=== PATIENT | male | born 1950 | race Caucasian/White ===

== ENCOUNTER 2018-04-14 13:59 | Observation (INO) | payer MEDICARE, MEDICAID ==
[2018-04-14 14:27] LABS: BASO % 0.6 % (0.0-2.0); EOS # 0.1 K/uL (0.0-0.7); EOS % 0.8 % (0.0-4.0); HEMOGLOBIN 13.5 g/dL (12.0-18.0); LYMPH # 1.6 K/uL (1.0-4.3); LYMPH % 20.9 % (20.0-40.0); MEAN CELL VOLUME 88.6 fL (80.0-94.0); MEAN CORPUSCULAR HEMOGLOBIN 29.1 pg (27.0-31.0); MEAN CORPUSCULAR HGB CONC 32.8 g/dL (33.0-37.0); MEAN PLATELET VOLUME 10.8 fL (7.2-11.7); MONO # 0.4 K/uL (0.0-0.8); MONO % 4.8 % (0.0-10.0); NEUT # 5.6 K/uL (1.8-7.0); NEUT % 72.9 % (50.0-75.0); RBC 4.66 Mil/uL (4.40-5.90); RED CELL DISTRIBUTION WIDTH 13.1 % (11.5-14.5); WHITE BLOOD COUNT 7.6 K/uL (4.8-10.8)
[2018-04-14 14:31] LABS: INR 1.2; PROTHROMBIN TIME 13.6 SECONDS (9.7-12.2)
[2018-04-14 14:35] LABS: ALBUMIN 4.5 g/dL (3.5-5.0); BLOOD UREA NITROGEN 21 mg/dL (9-20); GFR NON-AFRICAN AMERICAN > 60
[2018-04-14 14:36] LABS: ALB/GLOB RATIO 1.5 (1.0-2.1); ALT/SGPT 16 U/L (21-72); AST/SGOT 21 U/L (17-59)
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
[2018-04-14 15:53] LABS: SQUAMOUS EPITHIAL 2 /hpf (0-5); URINE BILIRUBIN NEGATIVE (NEGATIVE); URINE BLOOD 1+ (NEGATIVE); URINE CLARITY Hazy (Clear); URINE COLOR Yellow (YELLOW); URINE GLUCOSE (UA) NORMAL (Normal); URINE LEUKOCYTE ESTERASE NEG Leu/uL (Negative); URINE PROTEIN NEGATIVE (NEGATIVE)
[2018-04-14] MEDS: Sodium Chloride 0.9% 1,000 ML IV SCH (16:00)
--- NOTE | 2018-04-14 18:41 | RAD ---
Date of service: 04/14/2018 PROCEDURE: CHEST RADIOGRAPH, 1 VIEW HISTORY: chest pain COMPARISON: None available. FINDINGS: LUNGS: Clear. PLEURA: No pneumothorax or pleural fluid seen. CARDIOVASCULAR: No aortic atherosclerotic calcification present. No radiographic findings to suggest acute or significant cardiovascular disease. OSSEOUS STRUCTURES: No significant abnormalities. Old healed posterior lateral and presumed posttraumatic rib fractures on the right. VISUALIZED UPPER ABDOMEN: Normal. OTHER FINDINGS: None. IMPRESSION: No active disease.
[2018-04-14 18:51] LABS: CK-MB 1.86 ng/mL (0.0-3.38)
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
[2018-04-14 22:38] LABS: CK-MB 2.23 ng/mL (0.0-3.38)
[2018-04-15 02:14] LABS: CK-MB 2.18 ng/mL (0.0-3.38)
[2018-04-15 03:03] VITALS: RESP 20
[2018-04-15] MEDS: Sodium Chloride 0.9% 1,000 ML IV SCH ×4 (05:14→22:00)
[2018-04-15 07:35] LABS: HEMOGLOBIN 12.2 g/dL (12.0-18.0); MEAN CELL VOLUME 87.7 fL (80.0-94.0); MEAN CORPUSCULAR HGB CONC 33.1 g/dL (33.0-37.0); MEAN PLATELET VOLUME 11.1 fL (7.2-11.7); RBC 4.21 Mil/uL (4.40-5.90); RED CELL DISTRIBUTION WIDTH 13.3 % (11.5-14.5); WHITE BLOOD COUNT 7.6 K/uL (4.8-10.8)
[2018-04-15 07:48] LABS: ALB/GLOB RATIO 1.5 (1.0-2.1); ALBUMIN 3.6 g/dL (3.5-5.0); ALT/SGPT 17 U/L (21-72); AST/SGOT 23 U/L (17-59); BLOOD UREA NITROGEN 19 mg/dL (9-20); CALCIUM 8.2 mg/dl (8.6-10.4); GFR NON-AFRICAN AMERICAN > 60; HDL CHOLESTEROL 44 mg/dL (30-70)
[2018-04-15 07:58] LABS: LDL CHOLESTEROL 83 mg/dL (0-129)
--- NOTE | 2018-04-15 10:07 | US ---
Date of service: 04/15/2018 PROCEDURE: Ultrasound of the Kidneys HISTORY: painless hematuria, smoker COMPARISON: None available. TECHNIQUE: Grayscale imaging was performed. FINDINGS: RIGHT KIDNEY: Measures: 10.3 cm. Normal in size, contour and echogenicity. No stone, solid mass lesion or hydronephrosis visualized. LEFT KIDNEY: Measures: 10.2 cm. Normal in size, contour and echogenicity. No stone, solid mass lesion or hydronephrosis visualized. OTHER FINDINGS: None. IMPRESSION: Unremarkable renal sonogram.
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
--- NOTE | 2018-04-15 12:18 | CARD ---
APPROVED REPORT Date of service: 04/14/2018 EKG Measurement Heart [id number] <Conclusion> Normal sinus rhythm Left axis deviation Nonspecific ST abnormality Abnormal ECG
--- NOTE | 2018-04-15 12:18 | CARD ---
APPROVED REPORT Date of service: 04/14/2018 EKG Measurement Heart [id number] <Conclusion> Sinus bradycardia Left axis deviation Nonspecific ST and T wave abnormality Abnormal ECG
--- NOTE | 2018-04-15 13:54 | CARD ---
APPROVED REPORT Date of service: 04/15/2018 EXAM: Two-dimensional and M-mode echocardiogram with Doppler and color Doppler. INDICATION CHECK EF, RECURRENT TIA, WEAKNESS, STROKE RISK FACTORS Hypertension 2D DIMENSIONS IVSd1.1 (0.7-1.1cm)LVDd4.1 (3.9-5.9cm) PWd1.0 (0.7-1.1cm)LA [id number] (18-58mL) LVDs2.6 (2.5-4.0cm)FS (%) 36.7 % LVEF (%)66.9 (>50%)LVEF (Valdez's)59.48 % M-Mode DIMENSIONS Left Atrium (MM)2.38 (2.5-4.0cm)IVSd0.85 (0.7-1.1cm) Aortic Root3.53 (2.2-3.7cm)LVDd5.33 (4.0-5.6cm) Aortic Cusp Exc.2.18 (1.5-2.0cm)PWd0.91 (0.7-1.1cm) FS (%) 40 %LVDs3.20 (2.0-3.8cm) LVEF (%)63 (>50%) Mitral Valve MV E Vbuflamg42.9cm/sMV A Uvotkhdt78.3cm/sE/A ratio0.8 TDI Lateral E' Peak V5.58cm/sMedial E' Peak V5.84cm/sE/Lateral E'11.8 E/Medial E'11.3 Tricuspid Valve TR Peak [id number]/sTR Peak Gr.[id number] <Conclusion> nornal size la,lv & ra rv. normal lv wall motion,thickness,systolic & diastolic funciton with lvef of 55-60%. normal aortic,mitral,tv & pv. mild tr & pi with normal pulmonary systolic pressures of 25 mm of hg. no peric ardial effusion. normal size ivc. mildly dilated aortic root,4.0 cm.
--- NOTE | 2018-04-15 15:20 | CP.PCM.CON ---
History of Present Illness - History of Present Illness History of Present Illness: Neurology Consultation Note: Consult requested by Dr. Lopez Mr. Patel is a 67-year-old man with a past medical history of HTN, dementia, previous ischemic strokes in 2015 with residual weakness and dysarthria, who was at his PMDs office and noted to have bilateral lower extremity weakness. He was taken to his PMD by his cousin after he fell down and hit his head at home. He was sent to the ED for evaluation by the PMD. Initial CT scan showed chronic infarcts in the right MCA region and bilateral subcortical basal ganglia. He complained of pain in his back and his legs. No weakness in upper extremities was reported. When I saw the patient, he said the pain comes and goes and he was not currently having any in his back or legs. However, he appeared deconditioned and said he felt weak in his legs. Review of Systems - Review of Systems All systems: reviewed and no additional remarkable complaints except Past Patient History - Infectious Disease Hx of Infectious Diseases: None - Past Social History Smoking Status: Never Smoked - CARDIAC Hx Hypertension: Yes - PULMONARY Hx Asthma: Yes - NEUROLOGICAL HX Cerebrovascular Accident: Yes - MUSCULOSKELETAL/RHEUMATOLOGICAL Hx Arthritis: Yes - PSYCHIATRIC Hx Substance Use: No - SURGICAL HISTORY Other/Comment: unknown - ANESTHESIA Hx Anesthesia: No Meds Allergies/Adverse Reactions: Allergies Allergy/AdvReac Type Severity Reaction Status Date / Time No Known Allergies Allergy Verified 04/14/18 14:15 - Medications Medications: Current Medications Aspirin (Aspirin Supp) 300 mg HI DAILY [facility] Clopidogrel Bisulfate (Plavix) 75 mg PO DAILY [facility] Donepezil HCl (Aricept) 10 mg PO DAILY [facility] Famotidine (Pepcid) 20 mg PO DAILY [facility] Heparin Sodium (Porcine) (Heparin) 5,000 units SC Q8 [facility] Last Admin: 04/15/18 05:16 Dose: 5,000 units Sodium Chloride (Sodium Chloride 0.9%) 1,000 mls @ 100 mls/hr IV .Q10H [facility] Last Admin: 04/15/18 05:15 Dose: Not Given Nicotine (Nicoderm Cq) 1 patch TD DAILY [facility] Last Admin: 04/15/18 11:10 Dose: 1 patch Pantoprazole Sodium (Protonix Inj) 40 mg IVP DAILY [facility] Pneumococcal Polyvalent Vaccine (Pneumovax 23 Vaccine) 0.5 ml IM .ONCE ONE Stop: 04/16/18 12:01 Rosuvastatin Calcium (Crestor) 5 mg PO HS [facility] Last Admin: 04/14/18 21:35 Dose: Not Given Physical Exam - Constitutional Appears: Confused, Cachectic, Chronically Ill - Head Exam Head Exam: ATRAUMATIC, NORMAL INSPECTION, NORMOCEPHALIC - Eye Exam Additional comments: Right eye was esotropic - ENT Exam ENT Exam: Mucous Membranes Moist, Normal Exam - Neck Exam Neck exam: Positive for: Normal Inspection - Respiratory Exam Respiratory Exam: Clear to Auscultation Bilateral, NORMAL BREATHING PATTERN - Cardiovascular Exam Cardiovascular Exam: Bradycardia, +S1, +S2 - Neurological Exam Neurological exam: Abnormal Gait, CN II-XII Intact, Oriented x3 Additional comments: Significant dysarthria noted. Reflexes were brisk on the left side as compared to the right. He had generalized weakness, but was able to hold up both legs for longer than 10 seconds. 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 Results - Vital Signs Recent Vital Signs: Last Vital Signs Temp 97.6 F 04/15/18 07:25 Pulse 57 L 04/15/18 09:50 Resp 20 04/15/18 07:25 BP 138/78 04/15/18 07:25 Pulse Ox 98 04/15/18 07:25 - Labs Result Diagrams: 04/15/18 07:23 04/15/18 07:23 Labs: Laboratory Results - last 24 hr 04/14/18 04/14/18 04/14/18 15:40 18:24 21:59 WBC RBC Hgb Hct MCV MCH MCHC RDW Plt Count MPV Sodium Potassium Chloride Carbon Dioxide Anion Gap BUN Creatinine Est GFR ( Amer) Est GFR (Non-Af Amer) Random Glucose Hemoglobin A1c Calcium Phosphorus Magnesium Total Bilirubin AST ALT Alkaline Phosphatase Total Creatine Kinase 186 H 259 H CK-MB (Mass) 1.86 2.23 Troponin I < 0.0120 C-Reactive Protein NT-Pro-B Natriuret Pep 140 Total Protein Albumin Globulin Albumin/Globulin Ratio Triglycerides Cholesterol LDL Cholesterol Direct HDL Cholesterol Vitamin B12 TSH 3rd Generation Urine Color Yellow Urine Clarity Hazy Urine pH 5.0 Ur Specific [place] 1.025 Urine Protein Negative Urine Glucose (UA) Normal Urine Ketones Negative Urine Blood 1+ H Urine Nitrate Negative Urine Bilirubin Negative Urine Urobilinogen 2.0 Ur Leukocyte Esterase Neg Urine WBC (Auto) 4 Urine RBC (Auto) 4 H Ur Squamous Epith Cells 2 04/15/18 04/15/18 04/15/18 01:34 07:23 07:23 WBC 7.6 RBC 4.21 L Hgb 12.2 Hct 36.9 MCV 87.7 MCH 29.0 MCHC 33.1 RDW 13.3 Plt Count 176 MPV 11.1 Sodium 136 Potassium 3.5 L Chloride 105 Carbon Dioxide 24 Anion Gap 9 L BUN 19 Creatinine 0.6 L Est GFR ( Amer) > 60 Est GFR (Non-Af Amer) > 60 Random Glucose 85 Hemoglobin A1c Calcium 8.2 L Phosphorus 3.0 Magnesium 2.1 Total Bilirubin 0.6 AST 23 ALT 17 L Alkaline Phosphatase 85 Total Creatine Kinase 248 H CK-MB (Mass) 2.18 Troponin I < 0.0120 C-Reactive Protein NT-Pro-B Natriuret Pep Total Protein 6.1 L Albumin 3.6 Globulin 2.5 Albumin/Globulin Ratio 1.5 Triglycerides 56 Cholesterol 131 LDL Cholesterol Direct 83 HDL Cholesterol 44 Vitamin B12 348 TSH 3rd Generation 2.26 Urine Color Urine Clarity Urine pH Ur Specific [place] Urine Protein Urine Glucose (UA) Urine Ketones Urine Blood Urine Nitrate Urine Bilirubin Urine Urobilinogen Ur Leukocyte Esterase Urine WBC (Auto) Urine RBC (Auto) Ur Squamous Epith Cells 04/15/18 04/15/18 07:23 14:16 WBC RBC Hgb Hct MCV MCH MCHC RDW Plt Count MPV Sodium Potassium Chloride Carbon Dioxide Anion Gap BUN Creatinine Est GFR ( Amer) Est GFR (Non-Af Amer) Random Glucose Hemoglobin A1c 5.5 Calcium Phosphorus Magnesium Total Bilirubin AST ALT Alkaline Phosphatase Total Creatine Kinase CK-MB (Mass) Troponin I C-Reactive Protein 8.80 NT-Pro-B Natriuret Pep Total Protein Albumin Globulin Albumin/Globulin Ratio Triglycerides Cholesterol LDL Cholesterol Direct HDL Cholesterol Vitamin B12 TSH 3rd Generation Urine Color Urine Clarity Urine pH Ur Specific [place] Urine Protein Urine Glucose (UA) Urine Ketones Urine Blood Urine Nitrate Urine Bilirubin Urine Urobilinogen Ur Leukocyte Esterase Urine WBC (Auto) Urine RBC (Auto) Ur Squamous Epith Cells Assessment & Plan (1) TIA (transient ischemic attack) Assessment and Plan: The patient is currently at or near his baseline with no focal deficits. I recommend the followin. Telemetry 2. MRI brain without contrast and MRA head/neck without contrast 3. Echocardiogram 4. Check Lipids, HbA1c, b12, folate, TSH, vitamin D levels 5. Fluids with NS at 100 mL/hr 6. PT/OT eval and treatment 7. Continue aspirin 81 mg daily 8. Continue crestor 5 mg daily 9. Normalize BP 10. Case management consult Thank you for this consultation. Status: Acute
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
[2018-04-15] MEDS ORDERED: Dextrose 50% SYRINGE Inj (50 ml) IV PRN (19:00)
[2018-04-15] MEDS ORDERED: Glucagon Recombinant 1 mg Inj IM PRN (19:00)
[2018-04-15] MEDS ORDERED: hydrOXYzine HCl 25 mg/ml Inj IM STA (22:09)
[2018-04-16] MEDS: Sodium Chloride 0.9% 1,000 ML IV SCH ×2 (03:00→14:00)
[2018-04-16 07:28] LABS: ALB/GLOB RATIO 1.6 (1.0-2.1); ALBUMIN 4.2 g/dL (3.5-5.0); ALT/SGPT 19 U/L (21-72); AST/SGOT 45 U/L (17-59); BLOOD UREA NITROGEN 12 mg/dL (9-20); CALCIUM 8.6 mg/dl (8.6-10.4); GFR NON-AFRICAN AMERICAN > 60
--- NOTE | 2018-04-16 09:16 | CP.PCM.PN ---
Subjective - Date & Time of Evaluation Date of Evaluation: 04/16/18 Time of Evaluation: 07:30 - Subjective Subjective: PGY-[address] Lopez service Patient is seen and examined at bedside. Patient found sleeping in bed, upon awakening patient noted to have worsening slurred speech and confusion, not able to answer questions. Patient subsequently became somewhat combatatibe when performing physical exam. Patient will go back to sleep during examination. Patient revisited later in the morning with attending, Patient was alert and oriented to name and time, not to place and answered president's name correctly, slurred speech better, patient states feeling well with no other complaints at this time. Objective - Vital Signs/Intake and Output Vital Signs (last 24 hours): Temp Pulse Resp BP Pulse Ox 97.0 F L 69 20 130/60 94 L 04/16/18 08:16 04/16/18 08:16 04/16/18 08:16 04/16/18 08:16 04/16/18 08:16 Intake and Output: 04/16/18 04/16/18 06:59 18:59 Intake Total 1750 Balance 1750 - Medications Medications: Current Medications Aspirin (Aspirin Supp) 300 mg [place] Q24H [facility] Last Admin: 04/15/18 19:04 Dose: 300 mg Clopidogrel Bisulfate (Plavix) 75 mg PO DAILY [facility] Last Admin: 04/15/18 14:30 Dose: Not Given Dextrose (Dextrose 50% Inj) 0 ml IV STAT PRN; Protocol PRN Reason: Hypoglycemia Protocol Last Admin: 04/16/18 06:19 Dose: 50 ml Dextrose (Glutose 15) 0 gm PO ONCE PRN; Protocol PRN Reason: Hypoglycemia Protocol Donepezil HCl (Aricept) 10 mg PO DAILY [facility] Last Admin: 04/15/18 14:30 Dose: Not Given Famotidine (Pepcid) 20 mg PO DAILY [facility] Last Admin: 04/15/18 14:30 Dose: Not Given Glucagon (Glucagen Diagnostic Kit) 0 mg IM STAT PRN; Protocol PRN Reason: Hypoglycemia Protocol Heparin Sodium (Porcine) (Heparin) 5,000 units SC Q8 [facility] Last Admin: 04/16/18 05:43 Dose: 5,000 units Sodium Chloride (Sodium Chloride 0.9%) 1,000 mls @ 100 mls/hr IV .Q10H [facility] Last Admin: 04/16/18 03:00 Dose: 100 mls/hr Dextrose (Dextrose 5% In Water 1000 Ml) 1,000 mls @ 0 mls/hr IV .Q0M PRN; Protocol PRN Reason: Hypoglycemia Protocol Nicotine (Nicoderm Cq) 1 patch TD DAILY [facility] Last Admin: 04/15/18 11:10 Dose: 1 patch Pantoprazole Sodium (Protonix Inj) 40 mg IVP DAILY [facility] Pneumococcal Polyvalent Vaccine (Pneumovax 23 Vaccine) 0.5 ml IM .ONCE ONE Stop: 04/16/18 12:01 Rosuvastatin Calcium (Crestor) 5 mg PO HS [facility] Last Admin: 04/14/18 21:35 Dose: Not Given - Labs Labs: 04/15/18 07:23 04/16/18 06:47 PT 13.6 SECONDS (9.7-12.2) H 04/14/18 14:19 INR 1.2 04/14/18 14:19 APTT 29 SECONDS (21-34) 04/14/18 14:19 - Constitutional Appears: Non-toxic, No Acute Distress - Head Exam Head Exam: ATRAUMATIC, NORMAL INSPECTION, NORMOCEPHALIC - Eye Exam Eye Exam: Normal appearance Additional comments: right eye lateral gaze 2/2 to trauma, unchanged - ENT Exam ENT Exam: Mucous Membranes Dry, Normal Exam - Neck Exam Neck Exam: Full ROM, Normal Inspection - Respiratory Exam Respiratory Exam: Clear to Ausculation Bilateral, NORMAL BREATHING PATTERN. absent: Rales, Rhonchi, Wheezes - Cardiovascular Exam Cardiovascular Exam: REGULAR RHYTHM, +S1, +S2 - GI/Abdominal Exam GI & Abdominal Exam: Soft, Normal Bowel Sounds. absent: Distended, Tenderness - Extremities Exam Extremities Exam: Full ROM, Normal Capillary Refill, Normal Inspection - Back Exam Back Exam: NORMAL INSPECTION - Neurological Exam Neurological Exam: Alert, Awake, Oriented x3 - Psychiatric Exam Psychiatric exam: Normal Affect, Normal Mood - Skin Skin Exam: Dry, Normal Color, Warm
[2018-04-16] MEDS ORDERED: Pneumococcal 23-Valent Vaccine IM ONE ×2 (12:00→15:00)
[2018-04-16 15:44] VITALS: BP 128/75; TEMP 98; O2SAT 97
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
--- NOTE | 2018-04-16 15:50 | RAD ---
PROCEDURE: Bilateral hand radiographs. HISTORY: r/o degenerative arthritis COMPARISON: None. FINDINGS: BONES: Right Hand: No acute fracture Left Hand: No acute fracture probable old triquetrum fracture dorsum carpus no soft tissue swelling here bony density appears well corticated-; chronicity is inferred Bilateral diffuse osteopenia especially juxta-articular JOINTS: Right Hand: Arthrosis Left Hand: Arthrosis SOFT TISSUES: Right Hand: Normal. Left Hand: 1 mm metallic like density compatible with foreign body left 3rd digit radial side just distal to DIP joint. OTHER FINDINGS: None. IMPRESSION: Bilateral arthrosis-distal interphalangeal joints most notably affected. Is also however flexion deformity of each 5th proximal phalanx and arthropathic changes here as well. Old left dorsal triquetrum chip fracture suspect no acute fracture or acute dislocation suspect. Generalized osteopenia. 1 mm metallic like density compatible with foreign body left 3rd digit radial side just distal to DIP joint.
[2018-04-16 16:13] VITALS: PULSE 76
--- NOTE | 2018-04-17 18:39 | VASCLAB ---
Date of service: 04/15/2018 PROCEDURE: Carotid Duplex Exam. HISTORY: TIA COMPARISON: None available. TECHNIQUE: Grayscale and duplex Doppler evaluation of the cervical carotid and vertebral arteries were performed. The common carotid, carotid bifurcations and cervical Internal Carotid Artery (ICA) and proximal External Carotid Artery (ECA) were evaluated. The vertebral arteries were evaluated for gross patency and flow direction. Report prepared by BABITA Villatoro FINDINGS: RIGHT CAROTID ARTERIES: 1. Common Carotid Artery: No significant focal plaque formation of the right common carotid artery. Maximum Peak Systolic velocity: 65 cm/sec: End-diastolic velocity 12 cm/sec. 2. Carotid Bifurcation: Heterogeneous plaque formation. Maximum Peak Systolic velocity: 39 cm/sec: End-diastolic velocity 6 cm/sec. 3. Internal Carotid Artery: Plaque description: Heterogeneous 3.1. Proximal Segment: Peak systolic velocity 53 cm/sec: End-diastolic velocity 11 cm/sec - % stenosis 0-15% 3.2. Middle Segment: Peak systolic velocity 76 cm/sec: End-diastolic velocity 18 cm/sec - % stenosis 0-15% 3.3. Distal Segment: Peak systolic velocity 36 cm/sec: End-diastolic velocity 9 cm/sec - % stenosis 0-15% 4. External Carotid Artery: No significant focal plaque formation. Peak systolic velocity 110 cm/sec 5. ICA/CCA Ratio: 1.2 LEFT CAROTID ARTERIES: 1. Common Carotid Artery: No significant focal plaque formation of the left common carotid artery. Maximum Peak Systolic velocity: 61 cm/sec: End-diastolic velocity 12 cm/sec. 2. Carotid Bifurcation: Calcific plaque formation. Maximum Peak Systolic velocity: 46 cm/sec: End-diastolic velocity 8 cm/sec. 3. Internal Carotid Artery: Plaque description: Heterogeneous 3.1. Proximal Segment: Peak systolic velocity 81 cm/sec: End-diastolic velocity 20 cm/sec - % stenosis 0-15% 3.2. Middle Segment: Peak systolic velocity 102 cm/sec: End-diastolic velocity 32 cm/sec - % stenosis 0-15% 3.3. Distal Segment: Peak systolic velocity 72 cm/sec: End-diastolic velocity 15 cm/sec - % stenosis 0-15% 4. External Carotid Artery: No significant focal plaque formation. Peak systolic velocity 86 cm/sec 5. ICA/CCA Ratio: 1.7 VERTEBRAL ARTERIES: 1. Right Vertebral Artery: The right vertebral artery flow direction is antegrade. 2. Left Vertebral Artery: The left vertebral artery flow direction is antegrade. 3. Thyroid gland appears heterogeneous. OTHER FINDINGS: 1. None. IMPRESSION: RIGHT: Duplex scan does not suggest hemodynamically significant stenosis of the right extracranial carotid arteries. LEFT: Duplex scan does not suggest hemodynamically significant stenosis of the left extracranial carotid arteries. Thyroid gland appears heterogeneous. Dedicated ultrasound recommended.
--- NOTE | 2018-04-19 08:37 | CARD ---
APPROVED REPORT Date of service: 04/15/2018 EKG Measurement Heart [id number] [id number] <Conclusion> Sinus bradycardia Left axis deviation Abnormal ECG
== END 2018-04-16 17:38 ==
LOC: C.ER 13:59 → C.9E 15:50 → C.6T 17:22
PROVIDERS: ADMIT Hospitalist; ATTEND Hospitalist
DX: I69.351 Hemiplegia and hemiparesis following cerebral infarction affecting right dominant side (principal); E87.6 Hypokalemia; F03.90 Unspecified dementia, unspecified severity, without behavioral disturbance, psychotic disturbance, mood disturbance, and anxiety; F17.210 Nicotine dependence, cigarettes, uncomplicated; G45.9 Transient cerebral ischemic attack, unspecified; I10 Essential (primary) hypertension; J45.909 Unspecified asthma, uncomplicated; R31.29 Other microscopic hematuria; Z79.02 Long term (current) use of antithrombotics/antiplatelets; Z79.82 Long term (current) use of aspirin
CPT/HCPCS: 36415; 70450; 71045; 73130; 76770; 80053; 80061; 81001; 82550; 82553; 82607; 82948; 83036; 83735; 83880; 84100; 84443; 84484; 85025; 85027; 85610; 85651; 85730; 86039; 86140; 87086; 90732; 92526; 92610; 93005; 93306; 93880; 96361; 96372; 96374; 96375; 97162; 97530; 99285; C9113; G0009; G0378; G8978; G8979; G8996; G8997; J1644; J3410; J3480; J7030